=== PATIENT | male | born 1940 | race Caucasian/White ===

== ENCOUNTER 2017-05-18 23:37 | Emergency (ER) | payer OTHER, BC ==
[~2017-05-18] VITALS: Ht 170.2 cm; Wt 72.7 kg
[2017-05-19 01:07] LABS: HEMATOCRIT 37.7 % (38.0-50.0); MCH 31.8 PG (29.0-34.0); MCHC 34.7 G/DL (30.0-36.0); MCV 91.5 FL (86-99); PLATELET COUNT 199 K/uL (156-360); RBC DIS.WIDTH-CV 12.1 % (11.8-14.6); RBC DIS.WIDTH-SD 40.7 % (39-53); RED BLOOD COUNT 4.12 M/uL (4.00-5.50); WHITE BLOOD COUNT 5.7 K/uL (4.1-10.2)
[2017-05-19 03:34] VITALS: BP 187/81
== END 2017-05-19 03:34 | disposition home or self-care (01) ==
LOC: EME 23:37
PROVIDERS: Physician Assistant
DX: R04.0 Epistaxis (principal); E11.9 Type 2 diabetes mellitus without complications; I10 Essential (primary) hypertension; E78.5 Hyperlipidemia, unspecified; Z79.82 Long term (current) use of aspirin
CPT/HCPCS: 85027; 99281; 99283

== ENCOUNTER 2017-06-01 11:51 | Emergency (ER) | payer OTHER, BC ==
[~2017-06-01] VITALS: Ht 170.2 cm; Wt 74.3 kg
[2017-06-01] MEDS ORDERED: TENORMIN25 MG PO (12:44)
[2017-06-01] MEDS ORDERED: PRINIVIL20 MG PO (12:44)
[2017-06-01 14:23] VITALS: BP 111/65
== END 2017-06-01 14:23 | disposition home or self-care (01) ==
LOC: EME 11:51
DX: R04.0 Epistaxis (principal); I10 Essential (primary) hypertension; E11.9 Type 2 diabetes mellitus without complications; E78.5 Hyperlipidemia, unspecified
CPT/HCPCS: 99281; 99284